=== PATIENT | male | born 1950 | race Caucasian/White ===

== ENCOUNTER 2020-07-25 09:32 | Inpatient (IN) ==
[2020-07-25] MEDS ORDERED: 0.9 % Sodium Chloride 1,000 ML IVC ONE ×2 (09:55→11:31)
[2020-07-25 10:21] LABS: Mean Corpuscular HGB Conc 30.2 g/dL (31.6-35.5)
[2020-07-25 10:23] LABS: Hematocrit 33.8 % (37.5-50.1); Hemoglobin 10.2 g/dL (12.9-16.9); Mean Corpuscular Hemoglobin 24.7 pg (28.0-33.3); Mean Corpuscular Volume 81.8 fL (83.0-100.0); Mean Platelet Volume 10.1 fL (9.4-12.4); Platelet Count 335 K/mcL (140-400); Red Blood Count 4.13 M/mcL (4.19-5.50); Red Cell Distribution Width 19.7 % (11.5-14.5); White Blood Count 24.7 K/mcL (4.3-11.1)
[2020-07-25 10:43] LABS: VBG HCO3 21 mEq/L (21-27); VBG PCO2 47 mmHg (41-51); VBG PH 7.25 pH Units (7.32-7.42); VBG PO2 77 mmHg (25-50)
[2020-07-25 10:43] LABS: Alanine Aminotransferase 11 Units/L (7-52); Albumin 2.5 g/dL (3.5-5.7); Albumin/Globulin Ratio 0.6 (1.1-2.2); Alkaline Phosphatase 172 Units/L (34-104); Aspartate Amino Transferase 9 Units/L (13-39); BUN/Creatinine Ratio 29 (6-26); Bilirubin,Direct 0.2 mg/dL (0.0-0.2); Bilirubin,Indirect 0.1 mg/dL (0.0-1.0); Bilirubin,Total 0.3 mg/dL (0.3-1.0); Blood Urea Nitrogen 128 mg/dL (8-23); Calcium 8.8 mg/dL (8.6-10.3); Carbon Dioxide 19 mEq/L (23-29); Chloride 100 mEq/L (98-107); Globulin 4.3 g/dL (2.4-3.5); Glucose 230 mg/dL (70-105); INR 1.8; Magnesium 2.2 mg/dL (1.6-2.6); Osmolality,Calculated 324 (280-300); Phosphorous 7.8 mg/dL (2.7-4.5); Potassium 6.4 mEq/L (3.5-5.1); Prothrombin Time 20.7 Seconds (9.4-12.1); Sodium 133 mEq/L (136-145); Total Protein 6.8 g/dL (6.4-8.9); Troponin I < 0.03 ng/mL (< 0.04); eGFR For African Americans 16 (> 60); eGFR For Non-African Americans 13 (> 60)
[2020-07-25 10:45] LABS: Activated Partial Thrombo Time 28.8 Seconds (26.0-36.0)
[2020-07-25 10:56] LABS: Lymphocytes # 1.5 K/mcL (0.6-4.6); Monocytes # 3.5 K/mcL (0.0-1.3); Neutrophils # 18.8 K/mcL (1.6-8.9); Platelet Estimate Normal (Normal)
[2020-07-25] MEDS ORDERED: Ipratropium/Albuterol Neb 3 ML IH ONE (10:58)
[2020-07-25] MEDS ORDERED: *HR* Dextrose 50 % in Water (Vial) 50 ML VIAL IVP ONE (11:04)
[2020-07-25] MEDS ORDERED: Calcium Gluconate 1gm/50mL 1 GM/50 ML BAG IVPB STA (11:08)
[2020-07-25] MEDS ORDERED: Insulin Human Regular 10 UNIT in 0.9 % Sodium Chloride 10 ML IV ONE (11:09)
[2020-07-25] MEDS ORDERED: Cefepime HCl 2,000 MG in Water for inj. (sterile) 20 ML IVP STA (11:18)
[2020-07-25 11:57] LABS: Adenovirus Not Detected (Not Detect); Bordetella Pertussis Not Detected (Not Detect); Chlamydophila pneumoniae Not Detected (Not Detect); Coronavirus 229E Not Detected (Not Detect); Coronavirus HKU1 Not Detected (Not Detect); Coronavirus NL63 Not Detected (Not Detect); Coronavirus OC43 Not Detected (Not Detect); Human Metapneumovirus Not Detected (Not Detect); Human Rhinovirus/Enterovirus Not Detected (Not Detect); Influenza A Subtype 2009 H1 Not Detected (Not Detect); Influenza B Not Detected (Not Detect); Mycoplasma pneumoniae Not Detected (Not Detect); Parainfluenza Virus 1 Not Detected (Not Detect); Parainfluenza Virus 2 Not Detected (Not Detect); Parainfluenza Virus 3 Not Detected (Not Detect); Parainfluenza Virus 4 Not Detected (Not Detect); Respiratory Syncytial Virus Not Detected (Not Detect); SARS-CoV-2 Not Detected (Not Detect)
[2020-07-25] MEDS ORDERED: Vancomycin 1,250 MG/262.5 ML IV.SOLN IVPB ONE (12:00)
[2020-07-25] MEDS ORDERED: Naloxone 0.4 MG/ML INJ IVP PRN (12:10)
[2020-07-25] MEDS ORDERED: Melatonin 3 MG TABLET PO PRN (12:10)
[2020-07-25] MEDS ORDERED: Acetaminophen 325 MG TABLET PO PRN (12:10)
[2020-07-25] MEDS ORDERED: Ondansetron 4 MG/2 ML VIAL IVP PRN (12:10)
[2020-07-25] MEDS ORDERED: polyethylene glycoL 3350 17 GM POWD.PACK PO PRN (12:12)
[2020-07-25] MEDS ORDERED: Aspirin 81 MG TAB.CHEW PO SCH (12:15)
[2020-07-25] MEDS: SODIUM ZIRCONIUM CYCLOSILICATE 5 GM POWD.PACK PO STA ×2 (12:17→13:05)
[2020-07-25] MEDS ORDERED: Morphine Sulfate Oral CONC 10 MG/0.5 ML ORAL.SYG PO ONE (14:28)
[2020-07-25] MEDS ORDERED: *HR* FentaNYL (PF) 100 MCG/2 ML VIAL IVP ONE (14:54)
[2020-07-25] MEDS: Dexamethasone 4 MG/ML VIAL IVP SCH ×2 (14:58→20:17)
[2020-07-25 15:01] LABS: Calcium 7.9 mg/dL (8.6-10.3); Potassium 5.7 mEq/L (3.5-5.1)
[2020-07-25] MEDS ORDERED: *HR* LORazepam 2 MG/ML VIAL IVP PRN (15:51)
[2020-07-25] MEDS ORDERED: *HR* FentaNYL (PF) 100 MCG/2 ML VIAL IVP PRN (15:51)
[2020-07-25] MEDS: 0.9 % Sodium Chloride 1,000 ML IVC SCH (16:04)
[2020-07-25] MEDS: *HR* Heparin 5,000 UNIT/ML VIAL SQ SCH ×2 (16:07→20:56)
[2020-07-25] MEDS ORDERED: SODIUM ZIRCONIUM CYCLOSILICATE 5 GM POWD.PACK PO SCH (17:00)
[2020-07-25 17:53] LABS: Bilirubin,Urine Negative (Negative); Blood,Urine Trace (Negative); Clarity,Urine Clear (Clear); Color,Urine Light-Yellow (Yellow); Glucose,Urine (UA) Normal (Normal); Hyaline Casts,Urine Few per lpf (None Seen); Ketones,Urine Negative (Negative); Leukocyte Esterase,Urine Negative (Negative); Nitrite,Urine Negative (Negative); PH,Urine 5.5 pH Units (5.0-8.0); Protein,Urine 30 mg/dL (Neg-Trace); RBC,Urine 0-3 per hpf (0-3); Specific Gravity,Urine 1.018 (1.010-1.025); Urobilinogen,Urine Normal (Normal); WBC,Urine 0-3 per hpf (0-3)
[2020-07-25 19:47] VITALS: BP 115/72
[2020-07-25] MEDS ORDERED: Latanoprost 2.5 ML BOTTLE BOTH EYES SCH (21:00)
[2020-07-25] MEDS ORDERED: Scopolamine Patch 1.5 MG PATCH.TD72 TD ONE (23:39)
[2020-07-26] MEDS: 0.9 % Sodium Chloride 1,000 ML IVC SCH (00:07)
[2020-07-26] MEDS ORDERED: Cefepime HCl 2,000 MG in Water for inj. (sterile) 20 ML IVP SCH (09:00)
== END 2020-07-26 04:30 | disposition expired | DRG 871 ==
LOC: EMEROOARM 09:32 → 2NENU 09:32
PROVIDERS: ADMIT Internal Medicine; ATTEND Internal Medicine